=== PATIENT | female | born 1975 | race Caucasian/White ===

== ENCOUNTER → 2017-01-12 | Outpatient (CLI) | payer BC ==
--- NOTE | 2017-01-12 14:45 | CT ---
History: Low back pain Study: Multi planner intern CT lumbar spine without IV contrast Comparison: Report of MRI lumbar spine dated NovemberDecember 04, 2016 Findings: There is normal overall alignment without fracture or compression or significant disk spac e narrowing. There are mild anterior osteophytes at L2-3 and L3-4 and L4-5. There is no lytic or kendall stic lesion. The sacroiliac joints and transverse processes are intact as well as the spinous proces ses. At L4-5 there is minimal disk bulging and mild osteophytes about the facet joints. At L5-S1 there is mild facet joint osteophyte formation. Impression: 1. Mild lumbar degenerative disc disease and mild lower lumbar facet joint osteoarthritis 2. Mild L4-5 disc bulging diffusely Reported By:
--- NOTE | 2017-01-13 06:52 | NM ---
HISTORY: Low back pain Study: Nuclear medicine total body bone scan Comparison: MRI lumbar spine December 04, 2016 (report only ) Technique: Patient received intravenous injection of 20.4 millicuries technetium 99 MDP. Images were obtained 3 hours post injection. Findings: There are no areas of abnormal tracer concentration in the axial or appendicular skeleton. Specifica lly no abnormal tracer concentration is identified within the spine. IMPRESSION: No significant abnormality identified Reported By:
== END | disposition home or self-care (01) ==
LOC: RAD 12:07
PROVIDERS: ATTEND Neurological Surgery
DX: D18.09 Hemangioma of other sites (principal); M47.26 Other spondylosis with radiculopathy, lumbar region; M51.36 Other intervertebral disc degeneration, lumbar region; M47.896 Other spondylosis, lumbar region; M51.26 Other intervertebral disc displacement, lumbar region
CPT/HCPCS: 72131; 78306